=== PATIENT | female | born 1995 | race Caucasian/White ===

== ENCOUNTER 2019-11-08 23:00 | Observation (INO) | payer SELFPAY ==
[2019-11-08] MEDS ORDERED: Fentanyl 100 MCG/2 ML VIAL ONE ×2 (23:06→23:43)
[2019-11-08] MEDS ORDERED: Midazolam HCl 2 mg/2 ml Vial ONE (23:43)
[2019-11-08] MEDS ORDERED: Promethazine HCl 25 MG/ML VIAL ONE (23:54)
[2019-11-08] MEDS ORDERED: Glycopyrrolate 0.2 MG/ML 5 ML SYRINGE ONE (23:56)
[2019-11-08] MEDS ORDERED: Ketorolac Tromethamine 30 MG/ML VIAL ONE (23:56)
[2019-11-08] MEDS ORDERED: Lidocaine 1% PF 5 ML VIAL ONE (23:56)
[2019-11-08] MEDS ORDERED: Dexamethasone 20 MG/5 ML VIAL ONE (23:56)
[2019-11-08] MEDS ORDERED: Rocuronium Bromide 10 MG/ML (10ML VIAL) ONE (23:56)
[2019-11-08] MEDS ORDERED: Ondansetron PF 4 MG/2 ML Vial ONE (23:56)
[2019-11-08] MEDS ORDERED: PROPOFOL 200 MG/20 ML VIAL ONE (23:56)
[2019-11-08] MEDS ORDERED: PHENYLEPHRINE-NS 100 MCG/ML 10 ML SYRINGE ONE (23:56)
--- NOTE | 2019-11-09 00:04 | HP ---
CHIEF COMPLAINT: Fall, trauma. HISTORY OF PRESENT ILLNESS: This is a 24-year-old female, she had just gotten out of the shower and was in her closet and tripped and fell back, felt something cut her right buttock. She had a lot of bleeding, she says in her apartment, brought to the emergency room by her boyfriend, complaining of severe pain in the area. Initially seen at the [facility] Emergency Room, now transferred over to [facility]. She denies motor sensory loss to the extremity. It causes pain when she tries to flex at the right knee. She was hypotensive en route, had had a unit of PRBCs. Her blood pressures were fine now. MEDICAL HISTORY: She denies. PAST SURGICAL HISTORY: Denies. MEDICINES: None. ALLERGIES: PENICILLIN, CAUSES RASH. SOCIAL: Admits to social alcohol. No smoking or other drugs. REVIEW OF SYSTEMS: 10-system review of systems otherwise negative unless described above. PHYSICAL EXAMINATION: VITAL SIGNS: Her blood pressure now is 100/70, pulse is 120, respirations are 12. She is afebrile. HEENT: Pupils are 4 mm and reactive. No oral or facial trauma. CHEST: Clear. HEART: Increased rate, regular rhythm. ABDOMEN: Soft, nontender. EXTREMITIES: Examination of her perineum is within normal limits. EXTREMITIES: Examination of her right buttocks reveals a deep laceration with exposed muscle. There is some involvement of the muscle in the laceration. There is ongoing bleeding present. The wound is packed. Motor sensory exam to the lower extremity is normal. She has sensation, motor, proprioception to the posterior and anterior calf. No limb-threatening ischemia. ASSESSMENT: Deep complex laceration, right buttock. PLAN: Irrigation, washout, closure in the operating room. Her neuro exam seems to be intact. We will explore the wound for any obvious sciatic nerve injury, although I think that is less likely. Job ID: [id number]
[2019-11-09] MEDS ORDERED: Fentanyl 100 MCG/2 ML VIAL ONE ×2 (01:01→01:14)
[2019-11-09] MEDS ORDERED: D5 1/2 NS w/20 mEq KCL 1,000 ML ONE (01:06)
[2019-11-09] MEDS ORDERED: Dextrose 5% in Water 1,000 ML IV PRN (01:46)
[2019-11-09] MEDS ORDERED: Promethazine HCl 25 MG/ML VIAL IM PRN (01:46)
[2019-11-09] MEDS ORDERED: HYDROcodone/Acetaminophen 7.5/325 mg Tablet PO PRN (01:46)
[2019-11-09] MEDS ORDERED: Ondansetron PF 4 MG/2 ML Vial IVP PRN (01:46)
[2019-11-09] MEDS ORDERED: Morphine 2 MG/ML VIAL SLOW IVP PRN (01:46)
[2019-11-09] MEDS ORDERED: hydrALAZINE 20 MG/ML VIAL SLOW IVP PRN (01:46)
[2019-11-09] MEDS ORDERED: Dextrose 50% Abboject 50 ML SYRINGE SLOW IVP PRN (01:46)
[2019-11-09] MEDS ORDERED: D5 1/2 NS w/20 mEq KCL 1,000 ML IV SCH (02:00)
[2019-11-09 02:07] VITALS: BMI 20.5
[2019-11-09] MEDS: Morphine 4 MG/ML VIAL SLOW IVP PRN ×2 (04:01→06:58)
[2019-11-09] MEDS: HYDROcodone/Acetaminophen 7.5/325 mg Tablet PO PRN ×2 (08:46→12:33)
[2019-11-09] MEDS ORDERED: Famotidine/PF 20 mg/2ml Vial SLOW IVP SCH (09:00)
[2019-11-09] MEDS ORDERED: Famotidine 20 MG TAB PO SCH (09:00)
--- NOTE | 2019-11-09 11:00 | OP ---
DATE OF PROCEDURE: 11/08/2019 PREOPERATIVE DIAGNOSIS: Open wound with active bleeding, right buttock. POSTOPERATIVE DIAGNOSIS: Open wound with active bleeding, right buttock. PROCEDURE PERFORMED: Washout and complex closure of buttock wound 7 cm length. ANESTHESIA: General. ESTIMATED BLOOD LOSS: Minimal. COMPLICATIONS: None. FINDINGS: There is a fragment of glass in the wound, which is removed. There is no obvious involvement of the sciatic nerve. There is laceration to the gluteus muscle, but it goes more superolaterally. DESCRIPTION OF PROCEDURE: The patient was taken to the operating room and laid supine on the operating room table. After general anesthetic was obtained, the patient was placed in left lateral decubitus position. Her buttock and perineum were prepped and draped in a sterile fashion. The wound was irrigated out. All the old clot was removed. There was a fragment of glass that was removed. The wound was irrigated. The wound was explored and it goes lateral superior. There does not appear to be any obvious involvement of sciatic nerve. There was laceration to the gluteus muscle. The gluteus muscle was closed using interrupted Vicryl suture. Subcutaneous tissues were closed using 3-0 Vicryl suture. The skin was closed using skin ab. Sterile dressings were placed. The patient was en route to Recovery in stable condition. All instrument counts, needle counts, and lap counts were correct. Job ID: [id number] [facility]
[2019-11-09 11:24] LABS: #Lymphocytes 2.2 thou/uL (1.20-3.40); #Monocytes 0.8 thou/uL (0.11-0.59); #Neutrophils 12.5 thou/uL (1.40-6.50); %Eosinophils 0.1 % (0.0-10.0); %Monocytes 4.9 % (0.0-10.0); %Neutrophils 80.9 % (42.0-75.0); Hemoglobin 12.2 g/dL (12.0-16.0); Mean Corpuscular HGB CONC 33.2 g/dL (32.0-36.0); Mean Corpuscular Volume 96.5 fL (78.0-98.0); Mean Platelet Volume 10.3 fL (7.4-10.4); Platelet Count 241 thou/uL (130-400); RBC Distribution Width 12.2 % (11.5-14.5); Red Blood Cell (RBC) Count 3.83 mill/uL (4.20-5.40); White Blood Cell (WBC) Count 15.5 thou/uL (4.8-10.8)
[2019-11-09 12:20] VITALS: BP 113/72; TEMP 98.2
--- NOTE | 2019-11-14 08:12 | PDOC.GSPN ---
Surgery Progress Note: Obj - Vital signs Vital signs: Vital Signs - Most Recent Temp Pulse Resp BP Pulse Ox 98.2 F 73 18 113/72 92 L 11/09/19 11:07 11/09/19 11:07 11/09/19 11:07 11/09/19 11:07 11/09/19 11:07 Surgery Progress Note: Results - Labs Result Diagrams: 11/09/19 10:59 Surgery Progress Note: A/P - Problem (1) Laceration of buttock with foreign body Code(s): S31.802A - LACERATION WITH FOREIGN BODY OF UNSP BUTTOCK, INIT ENCNTR Status: Acute Discharge Summary: Hospital - Problem (1) Laceration of buttock with foreign body Status: Acute Code(s): S31.802A - LACERATION WITH FOREIGN BODY OF UNSP BUTTOCK , INIT ENCNTR SNOMED Code(s): 890929386 - Labs Result Diagrams: 11/09/19 10:59 Lab Results: WBC 15.5 thou/uL (4.8-10.8) H 11/09/19 10:59 Hgb 12.2 g/dL (12.0-16.0) 11/09/19 10:59 Hct 36.9 % (36.0-47.0) 11/09/19 10:59 MCV 96.5 fL (78.0-98.0) 11/09/19 10:59 Plt Count 241 thou/uL (130-400) 11/09/19 10:59 Neutrophils % 80.9 % (42.0-75.0) H 11/09/19 10:59 - Physical Exam Vitals: Weight Weight 120 lb
--- NOTE | 2019-11-14 08:40 | DIS ---
DATE OF ADMISSION: 11/09/2019 DATE OF DISCHARGE: 11/09/2019 DISCHARGE ATTENDING: Dr. Boothe. PROCEDURES: On 11/08/2019, washout and closure of buttocks wound. PRIMARY DIAGNOSIS: Deep complex laceration, right buttock. DISCHARGE MEDICATIONS: 1. [place] 7.5 one tab p.o. q.6 hours p.r.n. #[address] Boothe. 2. No discontinued medications. HISTORY OF PRESENT ILLNESS AND HOSPITAL COURSE: This is a 24-year-old female, who reports just getting out of the shower, was in her closet and tripped and fell back on something causing her to cut her right buttock. The patient reported a lot of bleeding and was taken to the emergency room complaining of severe pain to the area. The patient was initially seen at [facility] and was transferred to [place] for definitive care. The patient denied any motor or sensory loss to the extremity. The patient reports pain when she tries to flex the right knee. The patient did have some hypotension in route and had a unit of PRBCs. The patient's blood pressure did improve after blood products. The patient's pain was well controlled pre and postop. On the day of discharge, the patient was awake, alert, no distress, and pain was controlled. The patient was able to tolerate the diet. The patient was able to ambulate without any difficulties. The patient's vital signs were stable. Her exam was unremarkable including cardiopulmonary and GI exam. The patient's hemoglobin was stable at 12.2. The patient was deemed stable for discharge to home. DISPOSITION: Stable. LOCATION: Home. DIET: Regular diet as tolerated. ACTIVITY: As tolerated. FOLLOWUP: Follow up with Dr. Boothe in 14 days. Job ID: [id number] [facility]
--- NOTE | 2019-11-17 05:50 | PQF ---
[facility] POST DISCHARGE CLINICAL DOCUMENTATION IMPROVEMENT CLARIFICATION FORM Todays Date: 11/14/19 Patients Name JIMMY HERRERA Admit Date 11/09/19 Disch Date 11/09/19 High Lift Mule Operator Name Jevon Ballard Email: [email or web address] Cell: [phone] To be completed by High Lift Mule Operator: Present Clinical Indicators - Signs / Symptoms Results and Location in Medical Record [ ] Documentation of: [ ] [ ] Documentation of: [ ] [ ] Documentation of: [ ] [ ] Documentation of: [ ] [ ] Risks [ ] [ ] [ ] Treatment [ ] Laceration of right gluteus muscle Query for size of laceration repair (cm) [ ] [ ] To be completed by Physician: JOSEF LOCK The documentation in this patients record requires clarification to ensure coding compliance and accuracy. Check the appropriate box and include in your discharge summary. [ ] [ ] [ ] [ ] Please check this box if this does not apply to this patient [ ] Unable to determine [ X] Other diagnosis: ___7 cm laceration through gluteus nish muscle. buttock Review the following information and exercise your independent professional judgment in responding to the clarification. Based upon the clinical findings, risk factors, and treatment, please clarify if you are treating one of the above probable or suspected diagnoses. Physician Signature: Date Time MTDD
== END 2019-11-09 15:26 | disposition home or self-care (01) ==
LOC: ERS 23:00 → SDC/OP 11-09 00:05 → SURG A 11-09 01:35
PROVIDERS: ADMIT Surgery; ATTEND Surgery
PROC: 0KQN0ZZ Repair Right Hip Muscle, Open Approach (ICD-10-PCS; principal; 2019-11-09)
DX: S76.021A Laceration of muscle, fascia and tendon of right hip, initial encounter (principal); S31.812A Laceration with foreign body of right buttock, initial encounter; I95.9 Hypotension, unspecified; Z88.0 Allergy status to penicillin; W01.118A Fall on same level from slipping, tripping and stumbling with subsequent striking against other sharp object, initial encounter
CPT/HCPCS: 36415; 85025; 86850; 86900; 86901; 96361; 96374; 96376; G0378; J1100; J1885; J2250; J2270; J2405; J2550; J2704; J3010; J3480

== ENCOUNTER 2021-06-25 19:45 | Emergency (ER) | payer SELFPAY ==
[2021-06-25] MEDS ORDERED: Morphine 4 MG/ML VIAL ONE ×2 (21:18→22:36)
[2021-06-25] MEDS ORDERED: Fentanyl 100 MCG/2 ML VIAL ONE (23:43)
== END 2021-06-25 23:58 | disposition home or self-care (01) ==
LOC: ERS 19:45
DX: S52.501A Unspecified fracture of the lower end of right radius, initial encounter for closed fracture (principal); F17.210 Nicotine dependence, cigarettes, uncomplicated; W14.XXXA Fall from tree, initial encounter
CPT/HCPCS: 25605; 96372; 96374; J2270; J3010